=== PATIENT | male | born 1990 | race African-American/Black ===

== ENCOUNTER 2019-04-15 19:32 | Emergency (ER) | payer MEDICAID ==
[~2019-04-15] VITALS: Ht 188 cm; Wt 82.0 kg
[2019-04-15 19:40] VITALS: BP 139/72
== END 2019-04-16 01:29 | disposition left against medical advice (07) ==
LOC: ER 19:32
DX: R05 Cough (principal); Z53.21 Procedure and treatment not carried out due to patient leaving prior to being seen by health care provider

== ENCOUNTER 2021-12-24 00:45 | Emergency (ER) | payer MEDICAID ==
[~2021-12-24] VITALS: Ht 182.9 cm; Wt 87.0 kg
[2021-12-24] MEDS ORDERED: SODIUM CHLORIDE 0.9% 1,000 ML IV ONE (03:15)
[2021-12-24] MEDS ORDERED: MORPHINE SULFATE 4 MG/ML CPJ (NOT FOR IM USE) IV ONE ×2 (03:15→03:45)
[2021-12-24] MEDS ORDERED: PROPOFOL 200MG/20ML VIAL IV ONE (03:15)
[2021-12-24] MEDS ORDERED: ETOMIDATE 2MG/ML 10ML VIAL IV ONE (03:15)
[2021-12-24] MEDS ORDERED: ONDANSETRON HCL 4MG/2ML INJ IV ONE (03:15)
[2021-12-24 09:03] VITALS: BP 124/69
== END 2021-12-24 09:03 | disposition home or self-care (01) ==
LOC: ER 00:45
DX: S43.084A Other dislocation of right shoulder joint, initial encounter (principal); W01.0XXA Fall on same level from slipping, tripping and stumbling without subsequent striking against object, initial encounter; Y93.89 Activity, other specified; Y92.018 Other place in single-family (private) house as the place of occurrence of the external cause
CPT/HCPCS: 23650; 73030; 96361; 96374; 96375; 96376; 99152; 99285; J2270; J2405; J2704; J3490; J7030; L3670